=== PATIENT | male | born 1990 | race Native Hawaiian/Other Pacific Islander ===

== ENCOUNTER 2022-07-02 13:04 | Emergency (ER) | payer OTHER ==
[~2022-07-02] VITALS: Ht 170.2 cm; Wt 78.6 kg
[2022-07-02 13:26] VITALS: BP 137/79
[2022-07-02] MEDS ORDERED: BENZ-300 PO (14:23)
[2022-07-02] MEDS ORDERED: PROM118S5 PO (14:23)
[2022-07-02] MEDS ORDERED: IBUP-2213 PO (14:23)
--- NOTE | 2022-07-02 15:03 | NUR ---
HERE FOR SORE THROAT AND COUGH, NO DISTRESS NOTED
--- NOTE | 2022-07-02 15:30 | NUR ---
pt dc'd home, Patient discharged with v/s stable. Written and verbal after care instructions given and explained. Patient verbalized understanding. Ambulatory with steady gait. All questions addressed prior to discharge. Advised to follow up with PMD.
[2022-07-02 15:34] VITALS: BP 123/78
== END 2022-07-02 15:34 | disposition home or self-care (01) ==
LOC: MED 13:04
DX: J06.9 Acute upper respiratory infection, unspecified (principal)
CPT/HCPCS: 99283